=== PATIENT | female | born 1950 | race Caucasian/White ===

== ENCOUNTER 2020-10-29 18:45 | Inpatient (IN) | payer MEDICARE ==
[~2020-10-29 18:45] MED LIST: Iopamidol 370 76% 100 ML VIAL ONE
[2020-10-29 19:45] LABS: #Basophils 0.1 thou/uL (0.0-0.2); #Eosinphils 0.3 thou/uL (0.0-0.7); #Lymphocytes 2.2 thou/uL (1.20-3.40); #Monocytes 0.7 thou/uL (0.11-0.59); #Neutrophils 5.3 thou/uL (1.40-6.50); %Basophils 1.1 % (0.0-1.0); %Eosinophils 3.1 % (0.0-10.0); %Lymphocytes 25.3 % (21.0-51.0); %Monocytes 8.2 % (0.0-10.0); %Neutrophils 62.3 % (42.0-75.0); Hemoglobin 10.6 g/dL (12.0-16.0); Mean Corpuscular HGB CONC 33.8 g/dL (32.0-36.0); Mean Corpuscular Hemoglobin 29.4 pg (27.0-31.0); Mean Corpuscular Volume 87.1 fL (78.0-98.0); Mean Platelet Volume 7.9 fL (7.4-10.4); Platelet Count 237 thou/uL (130-400); RBC Distribution Width 12.7 % (11.5-14.5); White Blood Cell (WBC) Count 8.5 thou/uL (4.8-10.8)
[2020-10-29 20:06] LABS: ALT (SGPT) 10 U/L (8-55); AST (SGOT) 16 U/L (5-34); Alkaline Phosphatase 116 U/L (40-110); Anion Gap 14 mmol/L (10-20); BUN (Urea Nitrogen) 18 mg/dL (9.8-20.1); Bilirubin, Total 0.6 mg/dL (0.2-1.2); Calc. Creatinine Clearance 0 mL/min (70-130); Calcium 8.6 mg/dL (7.8-10.44); Carbon Dioxide 19 mmol/L (23-31); Chloride 109 mmol/L (98-107); Globulin 2.4 g/dL (2.4-3.5); Glucose 87 mg/dL (83-110); Potassium 4.5 mmol/L (3.5-5.1); Protein, Total 6.4 g/dL (5.8-8.1); Sodium 137 mmol/L (136-145)
[2020-10-29 20:28] LABS: CKMB 3.1 ng/mL (0-6.6)
[2020-10-29] MEDS ORDERED: Furosemide 20 MG/2 ML VIAL ONE (21:46)
[2020-10-29 22:56] LABS: Troponin I 0.035 ng/mL (< 0.028)
[2020-10-30] MEDS ORDERED: Calcium Carbonate 500 MG ChewTAB PO PRN (01:06)
[2020-10-30] MEDS ORDERED: Albuterol 200 PUFF (6.7GM INHALER) INH PRN (01:14)
[2020-10-30 01:21] VITALS: BMI 24.9
[2020-10-30] MEDS ORDERED: Furosemide 20 MG/2 ML VIAL SLOW IVP SCH (01:45)
[2020-10-30] MEDS ORDERED: Aspirin 325 MG TAB PO SCH (01:45)
[2020-10-30 02:50] LABS: Troponin I 0.043 ng/mL (< 0.028)
[2020-10-30 04:48] LABS: #Basophils 0.1 thou/uL (0.0-0.2); #Eosinphils 0.3 thou/uL (0.0-0.7); #Lymphocytes 1.9 thou/uL (1.20-3.40); #Monocytes 0.6 thou/uL (0.11-0.59); #Neutrophils 3.2 thou/uL (1.40-6.50); %Basophils 1.2 % (0.0-1.0); %Eosinophils 5.8 % (0.0-10.0); %Lymphocytes 30.7 % (21.0-51.0); %Neutrophils 52.4 % (42.0-75.0); Hemoglobin 9.9 g/dL (12.0-16.0); Mean Corpuscular HGB CONC 33.1 g/dL (32.0-36.0); Mean Corpuscular Hemoglobin 28.7 pg (27.0-31.0); Mean Corpuscular Volume 86.9 fL (78.0-98.0); Mean Platelet Volume 7.9 fL (7.4-10.4); Platelet Count 248 thou/uL (130-400); RBC Distribution Width 12.6 % (11.5-14.5); Red Blood Cell (RBC) Count 3.44 mill/uL (4.20-5.40)
[2020-10-30 05:00] LABS: SARS-CoV-2 PCR by NAA Not Detected (NotDetected)
[2020-10-30 05:12] LABS: Phosphorus 3.9 mg/dL (2.3-4.7)
[2020-10-30 05:17] LABS: Anion Gap 18 mmol/L (10-20); BUN (Urea Nitrogen) 16 mg/dL (9.8-20.1); Calc. Creatinine Clearance 45 mL/min (70-130); Calcium 8.5 mg/dL (7.8-10.44); Carbon Dioxide 17 mmol/L (23-31); Chloride 107 mmol/L (98-107); Glucose 86 mg/dL (83-110); Iron 31 ug/dL (50-170); Iron Binding Capacity, Total 371 mcg/dL (265-497); Magnesium 2.4 mg/dL (1.6-2.6); Potassium 3.8 mmol/L (3.5-5.1); Sodium 138 mmol/L (136-145)
[2020-10-30 05:39] LABS: Ferritin 68.09 ng/mL (10-291); Thyroid Stimulating Hormone 2.8163 uIU/mL (0.35-4.94)
[2020-10-30] MEDS: Furosemide 20 MG/2 ML VIAL SLOW IVP SCH ×2 (05:39→14:11)
[2020-10-30] MEDS: Aspirin 81 mg Enteric Coated Tablet PO SCH (08:57)
[2020-10-30] MEDS: Isosorbide Dinitrate 20 MG TAB PO SCH ×2 (08:58→21:35)
[2020-10-30] MEDS: Famotidine 20 MG TAB PO SCH (08:58)
[2020-10-30] MEDS: Atorvastatin Calcium 40 MG TAB PO SCH (08:58)
[2020-10-30] MEDS: Clopidogrel Bisulfate 75 MG TAB PO SCH (08:59)
[2020-10-30] MEDS: Enoxaparin Sodium 30 MG/0.3 ML SYRINGE SC SCH (08:59)
[2020-10-30] MEDS: Nicotine 14 MG PATCH TD SCH (08:59)
[2020-10-30] MEDS ORDERED: Metoprolol Tartrate 25 MG TAB PO SCH (09:00)
[2020-10-30] MEDS ORDERED: Lisinopril 20 MG TAB PO SCH (09:00)
[2020-10-30] MEDS: ALPRAZolam 0.25 MG TAB PO PRN ×2 (09:09→21:36)
[2020-10-31] MEDS ORDERED: Furosemide 40 MG TAB PO SCH (07:30)
[2020-10-31 07:45] VITALS: TEMP 98
[2020-10-31] MEDS: Atorvastatin Calcium 40 MG TAB PO SCH (07:46)
[2020-10-31] MEDS: Enoxaparin Sodium 30 MG/0.3 ML SYRINGE SC SCH (07:46)
[2020-10-31] MEDS: Aspirin 81 mg Enteric Coated Tablet PO SCH (07:46)
[2020-10-31] MEDS: Nicotine 14 MG PATCH TD SCH (07:47)
[2020-10-31] MEDS: Clopidogrel Bisulfate 75 MG TAB PO SCH (07:47)
[2020-10-31] MEDS: Isosorbide Dinitrate 20 MG TAB PO SCH (07:47)
[2020-10-31] MEDS: Famotidine 20 MG TAB PO SCH (07:52)
[2020-10-31] MEDS: ALPRAZolam 0.25 MG TAB PO PRN (08:13)
[2020-10-31] MEDS ORDERED: Losartan 25 MG TAB PO SCH ×2 (09:00→10:45)
[2020-10-31 10:09] LABS: Anion Gap 15 mmol/L (10-20); BUN (Urea Nitrogen) 27 mg/dL (9.8-20.1); Calc. Creatinine Clearance 33 mL/min (70-130); Calcium 9.2 mg/dL (7.8-10.44); Carbon Dioxide 24 mmol/L (23-31); Chloride 105 mmol/L (98-107); Glucose 97 mg/dL (83-110); Sodium 140 mmol/L (136-145)
[2020-10-31 11:44] VITALS: BP 176/72
[2020-11-01] MEDS ORDERED: Losartan 25 MG TAB PO SCH (09:00)
[2020-11-01 16:37] LABS: Hematocrit 30.5 % (34.0-46.6); RBC Folate Test Component 1797 ng/mL (>498)
== END 2020-10-31 13:24 | disposition home or self-care (01) | DRG 280 ==
LOC: ERS 18:45 → 2NO 22:05
PROVIDERS: ADMIT Family Medicine; ATTEND Family Medicine
DX: I11.0 Hypertensive heart disease with heart failure (principal); J96.01 Acute respiratory failure with hypoxia; I21.A1 Myocardial infarction type 2; N17.9 Acute kidney failure, unspecified; Z66 Do not resuscitate; I25.10 Atherosclerotic heart disease of native coronary artery without angina pectoris; J44.9 Chronic obstructive pulmonary disease, unspecified; F17.210 Nicotine dependence, cigarettes, uncomplicated; D63.8 Anemia in other chronic diseases classified elsewhere; I50.33 Acute on chronic diastolic (congestive) heart failure; Z20.822 Contact with and (suspected) exposure to COVID-19; F32.9 Major depressive disorder, single episode, unspecified; I69.398 Other sequelae of cerebral infarction; Z95.5 Presence of coronary angioplasty implant and graft; Z88.5 Allergy status to narcotic agent; Z79.82 Long term (current) use of aspirin
CPT/HCPCS: 36415; 71045; 71275; 80048; 80053; 82553; 82607; 82728; 82747; 83540; 83550; 83735; 83880; 84100; 84443; 84484; 85025; 87635; 93005; 93306; 94760; 96374; J1650; J1940; Q9967; U0003; U0005

== ENCOUNTER 2020-11-08 22:22 | Observation (INO) | payer MEDICARE ==
[2020-11-08] MEDS ORDERED: Ondansetron ODT 4 MG TAB PO PRN (23:41)
[2020-11-08] MEDS ORDERED: Acetaminophen 325 MG TAB PO PRN (23:41)
[2020-11-08 23:48] VITALS: BMI 25.3
[2020-11-08] MEDS ORDERED: Nitroglycerin 2% Ointment 1 INCH/1 GM Packet TOP SCH (23:59)
[2020-11-09 00:34] LABS: Troponin I 0.032 ng/mL (< 0.028)
[2020-11-09] MEDS ORDERED: Albuterol Sulfate 1.25 MG/3 ML NEB EZPAP PRN (04:18)
[2020-11-09 05:19] LABS: #Basophils 0.1 thou/uL (0.0-0.2); #Eosinphils 0.4 thou/uL (0.0-0.7); #Lymphocytes 2.2 thou/uL (1.20-3.40); #Monocytes 0.7 thou/uL (0.11-0.59); #Neutrophils 4.5 thou/uL (1.40-6.50); %Basophils 1.2 % (0.0-1.0); %Eosinophils 4.5 % (0.0-10.0); %Monocytes 9.1 % (0.0-10.0); %Neutrophils 57.2 % (42.0-75.0); Hemoglobin 9.5 g/dL (12.0-16.0); Mean Corpuscular Hemoglobin 28.2 pg (27.0-31.0); Mean Corpuscular Volume 85.3 fL (78.0-98.0); Platelet Count 243 thou/uL (130-400); RBC Distribution Width 12.7 % (11.5-14.5); Red Blood Cell (RBC) Count 3.35 mill/uL (4.20-5.40); White Blood Cell (WBC) Count 7.8 thou/uL (4.8-10.8)
[2020-11-09 05:45] LABS: Anion Gap 16 mmol/L (10-20); BUN (Urea Nitrogen) 25 mg/dL (9.8-20.1); Calc. Creatinine Clearance 37 mL/min (70-130); Calcium 8.1 mg/dL (7.8-10.44); Carbon Dioxide 22 mmol/L (23-31); Chloride 105 mmol/L (98-107); Glucose 98 mg/dL (83-110); Potassium 3.3 mmol/L (3.5-5.1); Sodium 140 mmol/L (136-145)
[2020-11-09 05:46] LABS: Troponin I 0.033 ng/mL (< 0.028)
[2020-11-09] MEDS ORDERED: Furosemide 40 MG TAB PO SCH (07:30)
[2020-11-09] MEDS ORDERED: Lidocaine 2% Viscous Solution 10 ML, Aluminum & Magnesium Hydroxide 30 ML SSW SCH (08:15)
[2020-11-09 08:35] LABS: SARS-CoV-2 PCR by NAA Not Detected (NotDetected)
[2020-11-09] MEDS ORDERED: Clopidogrel Bisulfate 75 MG TAB PO SCH (09:00)
[2020-11-09] MEDS ORDERED: Losartan 25 MG TAB PO SCH (09:00)
[2020-11-09] MEDS ORDERED: Isosorbide Dinitrate 5 MG TAB PO SCH (09:00)
[2020-11-09] MEDS ORDERED: Aspirin 81 mg Enteric Coated Tablet PO SCH (09:00)
[2020-11-09] MEDS ORDERED: Atorvastatin Calcium 40 MG TAB PO SCH (09:00)
[2020-11-09] MEDS ORDERED: ALPRAZolam 0.25 MG TAB PO PRN (11:07)
[2020-11-09] MEDS ORDERED: Regadenoson 0.4 MG/5 ML SYRINGE ONE (14:00)
[2020-11-09] MEDS ORDERED: Calcium Carbonate 500 MG ChewTAB PO PRN (17:47)
[2020-11-09 20:53] VITALS: BP 139/65; TEMP 97.4
== END 2020-11-09 20:56 | disposition home or self-care (01) ==
LOC: 2SW 22:22 → INTOOBSV 22:22
PROVIDERS: ADMIT Family Medicine; ATTEND Family Medicine
DX: R07.89 Other chest pain (principal); I25.10 Atherosclerotic heart disease of native coronary artery without angina pectoris; I11.0 Hypertensive heart disease with heart failure; I50.9 Heart failure, unspecified; I69.354 Hemiplegia and hemiparesis following cerebral infarction affecting left non-dominant side; F17.210 Nicotine dependence, cigarettes, uncomplicated; K21.9 Gastro-esophageal reflux disease without esophagitis; F19.11 Other psychoactive substance abuse, in remission; Z79.02 Long term (current) use of antithrombotics/antiplatelets; Z79.82 Long term (current) use of aspirin; Z79.899 Other long term (current) drug therapy; Z88.5 Allergy status to narcotic agent; Z95.5 Presence of coronary angioplasty implant and graft; Z20.822 Contact with and (suspected) exposure to COVID-19
CPT/HCPCS: 78452; 80048; 84484 ×2; 85025; 93017; A9500; G0378; U0003; U0005; 36415; 87635; J2785; Q0162

== ENCOUNTER 2021-09-14 13:02 | Outpatient (CLI) | payer MEDICARE ==
[~2021-09-14 13:02] MED LIST changes: -Iopamidol 370 76% 100 ML VIAL ONE; +Iopamidol-370 76% 500 ML 1 ML ONE
== END 2021-09-14 13:03 | disposition home or self-care (01) ==
LOC: BICCT 13:02
PROVIDERS: ATTEND Thoracic Surgery (Cardiothoracic Vascular Surgery)
DX: I65.23 Occlusion and stenosis of bilateral carotid arteries (principal); I63.89 Other cerebral infarction
CPT/HCPCS: 70498; 82565; Q9967